=== PATIENT | female | born 1945 | race Caucasian/White ===

== ENCOUNTER 2018-11-05 09:21 | Day surgery (SDC) | payer OTHER ==
[~2018-11-05] VITALS: Ht 162.6 cm; Wt 76.7 kg
[~2018-11-05 09:21] MED LIST: AMOX1XR PO; ASPI81CH PO; ATECHL PO; ATOR10 PO; ATOR20 PO; ATOR40TA PO; Bacid1 EACH PO; FERR325 PO; GLIP10 PO; GLIP10ER PO; GLUCOPHAGE PO; HYDACE7.5 PO; INSULANPEN; LISI20 PO; LISI5 PO; LISINOPRIL PO; MELO7.5 PO; METF500 PO; METO25 PO; METO25ER PO; Multivitamin1 EAC1 PO; POTCHL20ER PO; Percocet 5-3251 EACH PO; VICODIN ES 7.51 EACH PO
[2018-11-05] MEDS ORDERED: Glucophage1000 MG PO (10:05)
[2018-11-05] MEDS ORDERED: MONT10T PO (10:06)
--- NOTE | 2018-11-05 10:19 | NUR ---
PT ADMITTED TO [facility]. AGREES WITH PLANNED PROCEDURE. MEDS, ALLERGIES AND HX REVIEWED. LUNG SOUDNS CLEAR. TOLERATED BOWEL PREP, STATES LAST BM CLEAR.
--- NOTE | 2018-11-05 10:56 | NUR ---
11/05/18 1056 Mahendra Whiting PATIENT DETERMINED TO BE ASA APPROPRIATE FOR PROPOFOL SEDATION PRIOR TO START OF PROCEDURE BY . 3-LEAD EKG REVIEWED WITH PHYSICIAN PRIOR TO START OF PROCEDURE.PATIENT CONFIRMS NPO STATUS AND AGREES WITH SCHEDULED PROCEDURE.History, Chart, Medications and Allergies reviewed before start of procedure.MONITOR INTACT WITH CONTINUOUS PULSE OXIMETRY AND INTERMITTENT BP.HURRICAINE SPRAY TO OROPHARYX.Bite Block Placed
--- NOTE | 2018-11-05 11:51 | NUR ---
REPORT FROM MYNOR Walters RN. PT AWAKE. VSS. ABLE TO SIT SELF UP IN BED. PROVIDED WARM FLUIDS.
--- NOTE | 2018-11-05 12:30 | NUR ---
Discharge instructions reviewed with patient. Patient verbalizes understanding. Copy given to patient to take home. Patient States Post-Procedure ride home has been arranged. Discharged via wheelchair to private car for ride home. ALL BELONINGS RETURNED. CALL IN TO [facility] FOR OMPERAZOLE.
--- NOTE | 2018-11-05 15:16 | NUR ---
PATIENT MEDICATION FOR PRILOSEC SCRIPT CALLED IN TO [facility].
== END 2018-11-05 23:01 | disposition home or self-care (01) ==
LOC: ORSCMMR 09:21 → ORD 10:30 → ORSCMMR 10:30
PROVIDERS: Internal Medicine Gastroenterology
PROC: 0DB98ZX Excision of Duodenum, Via Natural or Artificial Opening Endoscopic, Diagnostic (ICD-10-PCS; principal; 2018-11-05 10:30)
PROC: 0DBM8ZX Excision of Descending Colon, Via Natural or Artificial Opening Endoscopic, Diagnostic (ICD-10-PCS; principal; 2018-11-05 10:30)
PROC: 0DB68ZX Excision of Stomach, Via Natural or Artificial Opening Endoscopic, Diagnostic (ICD-10-PCS; principal; 2018-11-05 10:30)
DX: R10.13 Epigastric pain (principal); R10.12 Left upper quadrant pain; D12.4 Benign neoplasm of descending colon; K29.80 Duodenitis without bleeding; K44.9 Diaphragmatic hernia without obstruction or gangrene; K29.70 Gastritis, unspecified, without bleeding; Z86.010 Personal history of colon polyps; Z80.0 Family history of malignant neoplasm of digestive organs; I10 Essential (primary) hypertension; E11.9 Type 2 diabetes mellitus without complications; E78.00 Pure hypercholesterolemia, unspecified; Z79.4 Long term (current) use of insulin; Z79.899 Other long term (current) drug therapy; Z87.891 Personal history of nicotine dependence
CPT/HCPCS: 82947; 88305; 88341; 88342; J7120

== ENCOUNTER 2023-04-08 11:27 | Emergency (ER) | payer OTHER ==
[~2023-04-08] VITALS: Ht 160 cm; Wt 72.6 kg
[~2023-04-08 11:27] MED LIST changes: +Glucophage1000 MG PO; +MONT10T PO
[2023-04-08 11:31] VITALS: BP 194/86
[2023-04-08] MEDS ORDERED: Percocet 5-3251 EACH PO (14:00)
[2023-04-08] MEDS ORDERED: Robaxin750 MG PO (14:00)
== END 2023-04-08 14:05 | disposition home or self-care (01) ==
LOC: ER 11:27
DX: M54.50 Low back pain, unspecified (principal); E11.9 Type 2 diabetes mellitus without complications; E78.5 Hyperlipidemia, unspecified; Z87.891 Personal history of nicotine dependence
CPT/HCPCS: 72100; 96372; 99283-25; A9270; J1885

== ENCOUNTER 2023-07-12 09:25 | Day surgery (SDC) | payer OTHER ==
[2023-07-12] VITALS (21 sets, daily range): BP systolic 54–153; BP diastolic 30–99
[~2023-07-12] VITALS: Ht 157.5 cm; Wt 66.4 kg
[~2023-07-12 09:25] MED LIST changes: +ALBU90OI INH; +AMLO5 PO; +ATOR80 PO; +INSULANI SC; +LOSA50 PO; +OMEP20ER PO; +PERCOCET 10-321 EA13 PO; +Robaxin750 MG PO
--- NOTE | 2023-07-12 10:45 | NUR ---
07/12/23 1045 Leslye Vazquez HISTORY, CHART, MEDICATIONS AND ALLERGIES REVIEWED BEFORE START OF PROCEDURE. PATIENT CONFIRMS NPO STATUS AND AGREES WITH SCHEDULED PROCEDURE. 3-LEAD EKG REVIEWED WITH PHYSICIAN PRIOR TO START OF PROCEDURE. MONITOR INTACT WITH CONTINUOUS PULSE OXIMETRY,CAPNOGRAPHY, 3-LEAD EKG, INTERMITTENT BP. SUPPLEMENTAL O2 TO BE TITRATED THROUGHOUT PROCEDURE TO MAINTAIN O2 SATURATION ABOVE 90%. PATIENT DETERMINED TO BE ASA APPROPRIATE FOR PROPOFOL SEDATION PRIOR TO START OF PROCEDURE BY .
--- NOTE | 2023-07-12 11:34 | NUR ---
REPORT RECEIVED FROM BRUNO INGRAM. VSS. PT ABLE TO REPOSITION SELF IN BED. PT REQUESTING PO FLUIDS AND TOLERATING THEM WELL. PT DENIES PAIN, NAUSEA, OR OTHER DISCOMFORTS.
--- NOTE | 2023-07-12 12:01 | NUR ---
Patient up to Ambulate independently. Gait steady. VSS. Discharge instructions reviewed with patient. Patient verbalizes understanding. Copy given to patient to take home. Patient States Post-Procedure ride home has been arranged. Discharged via wheelchair to private car for ride home. PT DENIES COMPLAINTS AND VERBALIZES READINESS TO GO HOME.
== END 2023-07-12 12:02 | disposition home or self-care (01) ==
LOC: ORSCMMR 09:25 → ORD 10:30 → ORSCMMR 12:02
PROVIDERS: Internal Medicine Gastroenterology
PROC: 0DB98ZX Excision of Duodenum, Via Natural or Artificial Opening Endoscopic, Diagnostic (ICD-10-PCS; principal; 2023-07-12 10:30)
PROC: 0DBL8ZX Excision of Transverse Colon, Via Natural or Artificial Opening Endoscopic, Diagnostic (ICD-10-PCS; principal; 2023-07-12 10:30)
PROC: 0DBN8ZX Excision of Sigmoid Colon, Via Natural or Artificial Opening Endoscopic, Diagnostic (ICD-10-PCS; principal; 2023-07-12 10:30)
PROC: 0DB78ZX Excision of Stomach, Pylorus, Via Natural or Artificial Opening Endoscopic, Diagnostic (ICD-10-PCS; principal; 2023-07-12 10:30)
PROC: 0DBK8ZX Excision of Ascending Colon, Via Natural or Artificial Opening Endoscopic, Diagnostic (ICD-10-PCS; principal; 2023-07-12 10:30)
DX: R63.4 Abnormal weight loss (principal); Z86.010 Personal history of colon polyps; D12.2 Benign neoplasm of ascending colon; D12.3 Benign neoplasm of transverse colon; K63.5 Polyp of colon; J44.9 Chronic obstructive pulmonary disease, unspecified; I10 Essential (primary) hypertension; E11.9 Type 2 diabetes mellitus without complications; E78.00 Pure hypercholesterolemia, unspecified; I48.0 Paroxysmal atrial fibrillation; Z79.4 Long term (current) use of insulin; Z79.84 Long term (current) use of oral hypoglycemic drugs; Z79.899 Other long term (current) drug therapy; Z87.891 Personal history of nicotine dependence
CPT/HCPCS: 82947; 88305; 88342; A9270; J2704; J7120

== ENCOUNTER → 2025-04-14 | Outpatient (CLI) | payer OTHER ==
[2025-04-14 17:05] LABS: BASOPHILS ABSOLUTE AUTO 0.10 K/mm3 (0.00-0.23); BASOPHILS PERCENT AUTO 1 % (0-2); EOSINOPHILS ABSOLUTE AUTO 0.22 K/mm3 (0.00-0.68); EOSINOPHILS PERCENT AUTO 3 % (0-6); Hematocrit 36.1 % (33.0-51.0); Hemoglobin 11.7 g/dL (11.5-16.0); IMMATURE GRAN ABSOLUTE AUTO 0.01 K/mm3 (0.00-0.10); IMMATURE GRAN PERCENT AUTO 0 % (0-1); LYMPHOCYTES ABSOLUTE AUTO 2.59 K/mm3 (0.84-5.20); LYMPHOCYTES PERCENT AUTO 37 % (21-46); MONOCYTES ABSOLUTE AUTO 0.73 K/mm3 (0.16-1.47); MONOCYTES PERCENT AUTO 10 % (4-13); Mean Corpuscular HGB Conc 32.4 g/dL (31.5-36.5); Mean Corpuscular Volume 93 fL (80-100); NEUTROPHILS ABSOLUTE AUTO 3.43 K/mm3 (1.96-9.15); NEUTROPHILS PERCENT AUTO 49 % (41-73); NRBC ABSOLUTE 0.00 K/mm3 (0.00-0.02); NRBC Auto 0.0 /100 WBC (0.0-0.2); Platelet Count 363 K/mm3 (150-400); RDW Coefficient Variation 12.9 % (11.7-14.2); RDW Standard Deviation 43.7 fL (35.1-46.3)
[2025-04-14 17:35] LABS: Alanine Aminotransfer (ALT/SGP 21 U/L (12-78); Albumin, Blood 4.0 g/dL (3.4-5.0); Albumin/Globulin Ratio 1.3 (0.8-1.8); Anion Gap 6 mmol/L (3-11); Aspartate Aminotrans (AST/SGOT 15 U/L (12-37); Bilirubin, Total 0.4 mg/dL (0.1-1.0); Blood Urea Nitrogen 23 mg/dL (8-24); CHOL/HDL RATIO 3.3; CO2, Blood 28 mmol/L (21-32); Calcium, Blood 8.9 mg/dL (8.5-10.1); Chloride, Blood 109 mmol/L (98-108); Cholesterol 217 mg/dL (50-200); Creatinine, Blood 0.70 mg/dL (0.40-1.00); Globulin, Blood 3.1 g/dL (2.2-4.0); Glucose, Blood 79 mg/dL (70-99); HDL Cholesterol 66 mg/dL (>39); LDL/HDL RATIO 2.0; Low Density Lipoprotein Chol 131 mg/dL (0-110); Potassium, Blood 4.5 mmol/L (3.5-5.5); Sodium, Blood 138 mmol/L (136-145); Total Protein, Blood 7.1 g/dL (6.4-8.2); Triglycerides 98 mg/dL (30-160); Very Low Density Lipoprot Chol 19 mg/dL (6-32)
[2025-04-14 18:38] LABS: Creatinine, Urine Random 43.4 mg/dL (27.00-270.00); Microalb/Creat Ratio UR, Rand 649.77 mg/g (0.000-30.000); Microalbumin, Random Urine 282.0 mg/L (0.000-20.000)
== END | disposition home or self-care (01) ==
LOC: LAB SHORT 14:57 → LAB 14:57
PROVIDERS: Nurse Practitioner Family
DX: E11.9 Type 2 diabetes mellitus without complications (principal); I10 Essential (primary) hypertension
CPT/HCPCS: 80053; 80061; 82043; 82570; 83036; 83880; 85025